=== PATIENT | male | born 1995 | race Caucasian/White ===

== ENCOUNTER 2024-03-02 20:55 | Emergency (ER) | payer OTHER ==
[~2024-03-02] VITALS: Ht 175.3 cm; Wt 129.3 kg
[2024-03-02 21:02] VITALS: BP_SYST 144; PULSE 98; RESP 18; TEMP 97.4; O2SAT 99
[2024-03-02 22:08] LABS: BASOPHILS # (AUTO) 0.1 K/uL (0.0-0.2); BASOPHILS % (AUTO) 0.5 % (0.0-2.0); EOSINOPHILS # (AUTO) 0.2 K/uL (0.0-0.4); HEMATOCRIT 43.9 % (36-54); HEMOGLOBIN 14.7 g/dL (14.0-18.0); LYMPHOCYTES # (AUTO) 2.6 K/uL (1.0-5.5); LYMPHOCYTES % (AUTO) 21.5 % (20.5-51.5); MEAN CORPUSCULAR HEMOGLOBIN 27 pg (27-31); MEAN CORPUSCULAR HGB CONC 33 % (32-36); MEAN CORPUSCULAR VOLUME 81 fL (79.0-98.0); MONOCYTES # (AUTO) 0.8 K/uL (0.0-1.0); MONOCYTES % (AUTO) 6.4 % (1.7-9.3); NEUTROPHILS # (AUTO) 8.4 K/uL (1.8-7.7); NEUTROPHILS % (AUTO) 69.6 % (40.0-70.0); PLATELET COUNT (AUTO) 308 K/uL (130-430); RED CELL DISTRIBUTION WIDTH 15.1 % (9.0-15.0)
[2024-03-02 22:25] LABS: PROTHROMBIN TIME 10.6 SECS (9.5-12.5)
[2024-03-02 22:28] LABS: ANION GAP 8 (5-15); CALCIUM 9.2 mg/dL (8.4-11.0); CARBON DIOXIDE 31 mmol/L (23-29); CHLORIDE 102 mmol/L (98-107); CREATININE 1.06 mg/dL (0.55-1.30); GFR AFRICAN AMERICAN 108 mL/min (>90); GFR NON AFRICAN-AMERICAN 89 mL/min (>90); GLUCOSE 92 mg/dL (74-106); POTASSIUM 3.9 mmol/L (3.5-5.1); SODIUM SERUM 141 mmol/L (136-145); UREA NITROGEN, BLOOD 14 mg/dL (8-21)
[2024-03-03] MEDS: MAG-AL HYDROX/SIMETH 30 ML UDC PO ONE (00:23)
[2024-03-03] MEDS: FAMOTIDINE 20 MG TABLET PO ONE (00:23)
[2024-03-03] MEDS ORDERED: FAMO-132 PO (00:28)
[2024-03-03 00:38] VITALS: BP_SYST 140; PULSE 77; RESP 17; TEMP 97.1; O2SAT 96
== END 2024-03-03 00:38 | disposition home or self-care (01) ==
LOC: SED 20:55
DX: R07.89 Other chest pain (principal); M79.662 Pain in left lower leg; R20.2 Paresthesia of skin; Z79.899 Other long term (current) drug therapy
CPT/HCPCS: 36415; 70450-TC; 71045; 80048; 84484; 85025; 85379; 85610; 85730; 93005; 93971; 99285